=== PATIENT | female | born 1985 | race Caucasian/White ===

== ENCOUNTER → 2018-08-10 | Outpatient (CLI) | payer SELFPAY ==
[2018-08-10 16:51] LABS: 1 HOUR POST GLUCOLA-GLUCOSE 113 mg/dL (65-105); 2 HOUR POST GLUCOLA-GLUCOSE 79 mg/dL (65-105); FASTING GLUCOSE 112 mg/dL (65-105)
== END ==
LOC: LAB 12:26
PROVIDERS: General Practice
DX: G62.9 Polyneuropathy, unspecified (principal)